=== PATIENT | female | born 1985 | race Caucasian/White ===

== ENCOUNTER 2021-01-08 07:44 | Emergency (ER) | payer OTHER ==
[~2021-01-08] VITALS: Ht 154.9 cm; Wt 45.4 kg
--- NOTE | 2021-01-08 07:50 | NUR ---
TO ER BED 10, [id number] C/O LEFT EYEBROW BUMP AND DIZZINESS S/P GROUND LEVEL FALL, AAOX3, BREATHING EVEN AND NON LABORED, [employer] UN[facility] 9A89 AT BEDSIDE
[2021-01-08] MEDS ORDERED: IBUPROFEN 600 MG TABLET PO ONE (08:00)
[2021-01-08] MEDS ORDERED: IBUPROFEN 600 MG TABLET ONE (08:06)
--- NOTE | 2021-01-08 08:11 | NUR ---
PT TAKEN TO CT
--- NOTE | 2021-01-08 08:24 | NUR ---
PATIENT REFUSED CT CERVICAL.
[2021-01-08] MEDS ORDERED: IBUP-1957 PO (08:43)
[2021-01-08] MEDS ORDERED: MECL-159 PO (08:43)
[2021-01-08 08:50] VITALS: BP 109/72
[2021-01-08] MEDS ORDERED: MECLIZINE HCL 12.5 MG TABLET PO ONE (09:00)
== END 2021-01-08 08:53 ==
LOC: ER 07:49
DX: S01.81XA Laceration without foreign body of other part of head, initial encounter (principal); R51.9 Headache, unspecified; F32.9 Major depressive disorder, single episode, unspecified; F43.10 Post-traumatic stress disorder, unspecified; W18.39XA Other fall on same level, initial encounter; Y93.89 Activity, other specified; Y92.89 Other specified places as the place of occurrence of the external cause; Y99.8 Other external cause status
CPT/HCPCS: 70450-TC; 70486-TC

== ENCOUNTER 2021-01-11 09:42 | Emergency (ER) | payer OTHER ==
[~2021-01-11] VITALS: Ht 154.9 cm; Wt 46.7 kg
[~2021-01-11 09:42] MED LIST: IBUP-1957 PO; MECL-159 PO
[2021-01-11 09:50] VITALS: BP 130/104
--- NOTE | 2021-01-11 10:17 | NUR ---
SEEN AND EVALUATED BY DR GRIFFITHS. MEDICALLY CLEARED. D/C TO PD IN STABLE CONDITION.
== END 2021-01-11 10:18 ==
LOC: ER 09:44
DX: S05.12XA Contusion of eyeball and orbital tissues, left eye, initial encounter (principal); S09.93XA Unspecified injury of face, initial encounter; F34.9 Persistent mood [affective] disorder, unspecified; Z02.89 Encounter for other administrative examinations; Z79.899 Other long term (current) drug therapy; W22.8XXA Striking against or struck by other objects, initial encounter; Y93.89 Activity, other specified; Y92.89 Other specified places as the place of occurrence of the external cause; Y99.8 Other external cause status